=== PATIENT | male | born 1930 | race Caucasian/White ===

== ENCOUNTER → 2017-10-26 | Outpatient (CLI) | payer OTHER ==
[~2017-10-26] MED LIST: ASPIR 8181 MG PO; CALCIUM 600 +1 EAC1 PO; DAKIN'S473 M2 OPHTHALMIC; ELIQUIS5 MG PO; FLAX OIL1000 MG PO; FLOMAX0.4 MG PO; IRON325 PO; LASIX 40 MG TAB40 M2 PO; LISINOPRIL2.5 MG PO; NEURONTIN 300300 M1 PO; NITROGLYCERIN0.4 MG SUBLING; OCUVITE ADULT1 EAC1 PO; OSTERA TABLET1 EAC1 PO; POTASSIUM20 PO; PROSCAR 5MG TABL5 MG PO; SIMVASTATIN40 MG PO; SORINE 80 MG TA80 M1 PO; SYNTHROID100 MCG PO; UNICOMPLEX M TA1 TA1 PO
== END ==
LOC: SEN 09:51
DX: F32.9 Major depressive disorder, single episode, unspecified (principal); I11.9 Hypertensive heart disease without heart failure; I48.91 Unspecified atrial fibrillation

== ENCOUNTER → 2017-11-28 | Outpatient (CLI) | payer OTHER | LOC: SEN 09:41 | DX: I25.10 Atherosclerotic heart disease of native coronary artery without angina pectoris (principal); E03.9 Hypothyroidism, unspecified; E53.8 Deficiency of other specified B group vitamins; C61 Malignant neoplasm of prostate; I48.91 Unspecified atrial fibrillation ==